=== PATIENT | female | born 1985 | race Caucasian/White ===

== ENCOUNTER 2022-03-08 05:19 | Inpatient (IN) | payer OTHER ==
[~2022-03-08] VITALS: Ht 154.9 cm; Wt 78.0 kg
[2022-03-08 05:54] LABS: HEMOGLOBIN 12.2 gm/dl (12.3-15.3); RED BLOOD COUNT 3.71 M/UL (4.00-5.10); WHITE BLOOD COUNT 7.4 K/UL (4.5-11.0)
[2022-03-08] MEDS ORDERED: FERROUS SULFAT325 M2 PO (06:31)
[2022-03-08] MEDS ORDERED: PRENATABS FA T1 EACH PO (06:31)
[2022-03-08] MEDS ORDERED: COLACE 100MG C100 MG PO (07:41)
[2022-03-08] MEDS ORDERED: HYDROCODON-ACE1 EAC6 PO (07:41)
[2022-03-08] MEDS ORDERED: IBUPROFEN600 MG PO (07:41)
== END 2022-03-10 15:10 | disposition home or self-care (01) | DRG 788 ==
LOC: OB 05:19
PROVIDERS: ADMIT Obstetrics & Gynecology
PROC: 4A1HXCZ Monitoring of Products of Conception, Cardiac Rate, External Approach (ICD-10-PCS; 2022-03-08)
PROC: 3E0234Z Introduction of Serum, Toxoid and Vaccine into Muscle, Percutaneous Approach (ICD-10-PCS; 2022-03-08)
PROC: 10D00Z1 Extraction of Products of Conception, Low, Open Approach (ICD-10-PCS; principal; 2022-03-08 07:30)
DX: O36.63X0 Maternal care for excessive fetal growth, third trimester, not applicable or unspecified (principal); Z3A.39 39 weeks gestation of pregnancy; Z37.0 Single live birth; Z23 Encounter for immunization
CPT/HCPCS: 36415; 81001; 82800; 82962; 85014; 85018; 85025; 86780; 90471; 90715; C9113; J0690; J1650; J1885; J2274; J2370; J2405; J2590; J3010